=== PATIENT | male | born 1965 | race Caucasian/White ===

== ENCOUNTER 2017-09-16 17:38 | Inpatient (IN) | payer OTHER ==
[2017-09-16 18:33] VITALS: BMI 25.2
--- NOTE | 2017-09-16 20:40 | HP ---
CIWA Score - CIWA Score Nausea/Vomitin Muscle Tremors: 5 Anxiety: 2 Agitation: 1-Slight > Activity Paroxysmal Sweats: 2 Orientation: 0-Oriented Tacttile Disturbances: 2-Mild Itch/Numbness/Burn Auditory Disturbances: 0-None Visual Disturbances: 0-None Headache: 1-Very Mild CIWA-Ar Total Score: 15 Admission ROS BHS - HPI Chief Complaint: WITHDRAWAL SYMPTOMS Allergies/Adverse Reactions: Allergies Allergy/AdvReac Type Severity Reaction Status Date / Time Penicillins Allergy Mild Hives Verified 09/16/17 18:45 History of Present Illness: 52 Y.O. MAN WITH AN EXTENSIVE HISTORY OF ALCOHOL DEPENDENCE IS SEEKING DETOX. HE REPORTS HE COMPLETED DETOX 6 MONTHS AT [facility]. STATES HIS LONGEST PERIOD SOBER HAS BEEN 3 YEARS WHILES INCARCERATED. Exam Limitations: Intoxication - Ebola screening Have you traveled outside of the country in the last 21 days: No Have you been sick,other than usual withdrawal symptoms: No - Review of Systems Constitutional: Diaphoresis, Changes in sleep EENT: reports: No Symptoms Reported Respiratory: reports: No Symptoms reported Cardiac: reports: No Symptoms Reported GI: reports: No Symptoms Reported : reports: No Symptoms Reported Musculoskeletal: reports: Back Pain Integumentary: reports: Dryness, Other (B/L LE SKIN DISCOLORATION) Neuro: reports: Headache Endocrine: reports: No Symptoms Reported Hematology: reports: Anemia Psychiatric: reports: Anxious, Depressed Other Systems: Reviewed and Negative Patient History - Patient Medical History Hx Anemia: Yes Hx Asthma: No Hx Chronic Obstructive Pulmonary Disease (COPD): No Hx Cancer: No Hx Cardiac Disorders: No Hx Congestive Heart Failure: No Hx Hypertension: No Hx Hypercholesterolemia: No Hx Pacemaker: No HX Cerebrovascular Accident: No Hx Seizures: Yes (ETOH RELATED: 2016) Hx Dementia: No Hx Diabetes: No Hx Gastrointestinal Disorders: No Hx Liver Disease: No Hx Genitourinary Disorders: No Hx Sexually Transmitted Disorders: No Hx Renal Disease (ESRD): No Hx Thyroid Disease: No Hx Human Immunodeficiency Virus (HIV): No Hx Hepatitis C: No Hx Depression: Yes Hx Suicide Attempt: No Hx Bipolar Disorder: No Hx Schizophrenia: No Other Medical History: PVD, VARICOSE VEINS - Patient Surgical History Past Surgical History: Yes Hx Cholecystectomy: Yes (2011) Anesthesia Reaction: No - PPD History Previous Implant?: Yes Documented Results: Negative w/o proof PPD to be Administered?: Yes - Reproductive History Patient is a Female of Child Bearing Age (11 -55 yrs old): No - Smoking Cessation Smoking history: Never smoked - Substance & Tx. History Hx Alcohol Use: Yes Substance Use Type: Alcohol Hx Substance Use Treatment: Yes (DETOX AT [facility]: 02/2017) - Substances Abused Alcohol Route: Oral Frequency: Daily Amount used: Beer- (7) 24 oz Age of first use: 17 Date of Last Use: 09/16/17 Family Disease History - Family Disease History Family Disease History: [place]: Grandparent (PROSTATE [place] ) Admission Physical Exam [facility] - Vital Signs Vital Signs: Vital Signs - 24 hr 09/16/17 18:32 Temperature 97.7 F Pulse Rate 94 H Respiratory 18 Rate Blood Pressure 139/80 - Physical General Appearance: Yes: Disheveled, Alcohol on Breath, Intoxicated, Tremorous, Sweating, Anxious HEENTM: Yes: Normocephalic, Normal Voice Respiratory: Yes: Chest Non-Tender, Lungs Clear, Normal Breath Sounds, No Respiratory Distress, No Accessory Muscle Use Neck: Yes: No masses,lesions,Nodules Breast: Yes: Breast Exam Deferred Cardiology: Yes: Regular Rhythm, Regular Rate Abdominal: Yes: Normal Bowel Sounds, Non Tender Genitourinary: Yes: Other (NO COMPLAINTS REPORTED) Musculoskeletal: Yes: full range of Motion, Gait Steady, Pelvis Stable Extremities: Yes: Tremors, Pedal Edema, Swelling, Other (B/L SKIN DISCOLORATION) Neurological: Yes: Alert, Normal Mood/Affect, Normal Response Integumentary: Yes: Pitting Edema Lymphatic: Yes: Within Normal Limits - Diagnostic (1) Alcohol dependence with uncomplicated withdrawal Current Visit: Yes Status: Chronic (2) Varicose veins of both lower extremities Current Visit: Yes Status: Chronic (3) PVD (peripheral vascular disease) Current Visit: Yes Status: Chronic (4) Seizure Current Visit: No Status: Acute Comment: LAST ETOH RELATED SEIZURE: 2015 Cleared for Admission [facility] - Detox or Rehab [facility] Level of Care: Medically Managed Detox Regimen/Protocol: Librium [facility] Breath Alcohol Content Breath Alcohol Content: 0.303 Urine Drug Screen - Results Drug Screen Negative: No Urine Drug Screen Results: BZO-Benzodiazepines, TCA-Tricyclic Antidepress
[2017-09-16] MEDS ORDERED: MAG HYDROX/AL HYDROX/SIMETH 30 ML UNIT-DOSE CUP PO PRN (20:58)
[2017-09-16] MEDS ORDERED: guaiFENesin/D-METHORPHAN HB 10 ML UNIT-DOSE CUPS PO PRN (20:58)
[2017-09-16] MEDS ORDERED: MAGNESIUM CITRATE 300 ML BOTTLE PO PRN (20:58)
[2017-09-16] MEDS ORDERED: IBUPROFEN 400 MG TABLET (FP) PO PRN (20:58)
[2017-09-16] MEDS ORDERED: MENTHOL/PHENOL 1 EACH UD MM PRN (20:58)
[2017-09-16] MEDS ORDERED: P-EPHED 60MG/TRIPROLIDI 2.5MG TABLET PO PRN (20:58)
[2017-09-16] MEDS ORDERED: ACETAMINOPHEN 325 MG TABLET (FP) PO PRN (20:58)
[2017-09-16] MEDS ORDERED: LOPERAMIDE HCL 2 MG CAPSULE PO PRN (20:58)
[2017-09-16] MEDS ORDERED: chlordiazePOXIDE HCL 25 MG CAPSULE PO PRN (20:58)
[2017-09-16] MEDS ORDERED: MAGNESIUM HYDROX 2400MG/30ML ORAL SUSPENSION 30 ML CUP PO PRN (20:58)
[2017-09-16] MEDS ORDERED: chlordiazePOXIDE HCL 25 MG CAPSULE PO ONE (21:01)
[2017-09-16] MEDS: THIAMINE HCL 100 MG TABLET (FP) PO SCH (22:17)
[2017-09-16] MEDS: diphenhydrAMINE HCL 25 MG CAPSULE (FP) PO PRN (22:19)
[2017-09-16] MEDS: chlordiazePOXIDE HCL 25 MG CAPSULE PO SCH (22:22)
[2017-09-17 03:52] LABS: URINE APPEARANCE CLEAR; URINE BILIRUBIN NEGATIVE (NEGATIVE); URINE BLOOD 2+ (NEGATIVE); URINE COLOR LTYELLOW; URINE GLUCOSE (UA) NEGATIVE (NEGATIVE); URINE KETONE NEGATIVE (NEGATIVE); URINE LEUK ESTERASE NEGATIVE (NEGATIVE); URINE NITRITE NEGATIVE (NEGATIVE); URINE PROTEIN NEGATIVE (NEGATIVE); URINE UROBILINOGEN NEGATIVE mg/dL (0.2-1.0)
[2017-09-17] MEDS: chlordiazePOXIDE HCL 25 MG CAPSULE PO SCH ×4 (05:35→22:06)
[2017-09-17] MEDS: PRENATAL VITAMINS W/ FOLIC ACID TABLET (FP) PO SCH (10:07)
[2017-09-17 10:13] LABS: HEMATOCRIT 39.5 % (35.4-49); HEMOGLOBIN 12.6 GM/dL (11.7-16.9); MCH 28.4 pg (25.7-33.7); MCHC 31.9 g/dl (32.0-35.9); MEAN CELL VOLUME 88.8 fl (80-96); MEAN PLT VOLUME 8.6 fl (7.5-11.1); PLATELET COUNT 123 K/MM3 (134-434); RBC 4.44 M/mm3 (4.00-5.60); RDW 15.7 % (11.9-15.9); WHITE BLOOD COUNT 2.5 K/mm3 (4.0-10.0)
[2017-09-17 10:16] LABS: ALBUMIN 3.3 g/dl (3.4-5.0); ANION GAP 10 (8-16); BLOOD UREA NITROGEN 6 mg/dL (7-18); CALCIUM 7.9 mg/dL (8.5-10.1); CHLORIDE 103 mmol/L (98-107); CO2 26 mmol/L (21-32); GLUCOSE,RANDOM 107 mg/dL (74-106); POTASSIUM 3.5 mmol/L (3.5-5.1); SODIUM 139 mmol/L (136-145)
[2017-09-17 10:20] LABS: ALK PHOS 128 U/L (45-117); BILIRUBIN,TOTAL 0.7 mg/dL (0.2-1.0); CREATININE 0.7 mg/dL (0.7-1.3); SGOT/AST 157 U/L (15-37); SGPT/ALT 199 U/L (12-78); TOT PROT 6.9 g/dl (6.4-8.2)
[2017-09-17] MEDS ORDERED: cloNIDine HCL 0.1 MG TABLET PO ONE (11:00)
--- NOTE | 2017-09-17 11:26 | EKG ---
Test Reason : Blood Pressure : / mmHG Vent. Rate : 080 BPM Atrial Rate : 080 BPM P-R Int : 158 ms QRS Dur : 112 ms QT Int : 392 ms P-R-T Axes : 062 000 027 degrees QTc Int : 452 ms NORMAL SINUS RHYTHM INCOMPLETE RIGHT BUNDLE BRANCH BLOCK BORDERLINE ECG NO PREVIOUS ECGS AVAILABLE BASELINE ARTIFACT Confirmed by ASRAH BERGMAN, ALYSSA ([id number]) on 09/17/2017 11:25:46 AM Referred By: Confirmed By:ALYSSA SMITH MD
--- NOTE | 2017-09-17 11:50 | CONSULT ---
[facility] Psychiatric Consult - Data Date of interview: 09/17/17 Admission source: [facility] Identifying data: First admission to [facility] for this 52 y/o male seeking detox treatment on for alcohol dependence.Patient is single,a father of three,homeless,unemployed and supported on food stamps. Substance Abuse History: Discussed in this interview.Patient confirmed active use of alcohol.See current [facility] report for details : Smoking history: Never smoked. - Substance & Tx. History. Hx Alcohol Use: Yes. Substance Use Type: Alcohol. Hx Substance Use Treatment: Yes (DETOX AT [facility]: 02/2017). - Substances Abused. Alcohol. Route: Oral. Frequency: Daily. Amount used: Beer- (7) 24 oz. Age of first use: 17. Date of Last Use: 09/16/17 Medical History: History of anemia,peripheral vascular disease (varicose veins), withdrawal-related seizures and cholecystectomy (2011). Psychiatric History: Patient denies. Physical/Sexual Abuse/Trauma History: Patient denies. Additional Comment: Urine Drug Screen Results: BZO-Benzodiazepines, TCA- Tricyclic Antidepressant.Noted. Mental Status Exam - Mental Status Exam Alert and Oriented to: Time, Place, Person Cognitive Function: Good Patient Appearance: Well Groomed Mood: Hopeful, Euthymic Affect: Appropriate, Normal Range Patient Behavior: Fatigued, Appropriate, Cooperative Speech Pattern: Clear (croatian-sppeaking) Voice Loudness: Normal Thought Process: Intact, Goal Oriented Thought Disorder: Not Present Hallucinations: Denies Suicidal Ideation: Denies Homicidal Ideation: Denies Insight/Judgement: Poor Sleep: Poorly, Difficulty falling asleep Appetite: Good Muscle strength/Tone: Normal Gait/Station: Normal Psychiatric Findings - Problem List ([place] 1, 2,3) (1) Alcohol dependence with uncomplicated withdrawal Current Visit: Yes Status: Acute - Initial Treatment Plan Initial Treatment Plan: Psychoeducation.Support.Detoxification in progress.Observation.
[2017-09-17] MEDS: CYCLOBENZAPRINE HCL 10 MG TABLET (FP) PO PRN ×2 (12:09→22:08)
--- NOTE | 2017-09-17 16:10 | PN ---
S CIWA - CIWA Score Nausea/Vomitin Muscle Tremors: 3 Anxiety: 4-Mod. Anxious/Guarded Agitation: 2 Paroxysmal Sweats: 3 Orientation: 0-Oriented Tacttile Disturbances: 2-Mild Itch/Numbness/Burn Auditory Disturbances: 1-Very Mild Visual Disturbances: 0-None Headache: 0-None Present CIWA-Ar Total Score: 18 BHS Progress Note (SOAP) Subjective: Anxious, Tremors, Sweating, Nausea, Interrupted Sleep, Constipation. Objective: PT. A & O X 3, OBSERVED AMBULATING ON UNIT. NO ACUTE DISTRESS. 09/17/17 16:05 Vital Signs Temperature 97.9 F 09/17/17 13:31 Pulse Rate 116 H 09/17/17 13:31 Respiratory Rate 17 09/17/17 13:31 Blood Pressure 112/85 09/17/17 13:31 O2 Sat by Pulse Oximetry (%) Laboratory Tests 09/16/17 09/17/17 09/17/17 23:31 08:00 08:00 WBC 2.5 L RBC 4.44 Hgb 12.6 Hct 39.5 MCV 88.8 MCH 28.4 MCHC 31.9 L RDW 15.7 Plt Count 123 L MPV 8.6 Sodium 139 Potassium 3.5 Chloride 103 Carbon Dioxide 26 Anion Gap 10 BUN 6 L Creatinine 0.7 Creat Clearance w eGFR > 60 Random Glucose 107 H Calcium 7.9 L Total Bilirubin 0.7 AST 157 H ALT 199 H Alkaline Phosphatase 128 H Total Protein 6.9 Albumin 3.3 L Urine Color Ltyellow Urine Appearance Clear Urine pH 6.0 Ur Specific [place] 1.004 Urine Protein Negative Urine Glucose (UA) Negative Urine Ketones Negative Urine Blood 2+ H Urine Nitrite Negative Urine Bilirubin Negative Urine Urobilinogen Negative Ur Leukocyte Esterase Negative Urine WBC (Auto) 1 Urine RBC (Auto) 1 RPR Titer 09/17/17 08:00 WBC RBC Hgb Hct MCV MCH MCHC RDW Plt Count MPV Sodium Potassium Chloride Carbon Dioxide Anion Gap BUN Creatinine Creat Clearance w eGFR Random Glucose Calcium Total Bilirubin AST ALT Alkaline Phosphatase Total Protein Albumin Urine Color Urine Appearance Urine pH Ur Specific [place] Urine Protein Urine Glucose (UA) Urine Ketones Urine Blood Urine Nitrite Urine Bilirubin Urine Urobilinogen Ur Leukocyte Esterase Urine WBC (Auto) Urine RBC (Auto) RPR Titer Nonreactive LABS NOTED. Assessment: 09/17/17 16:05 WITHDRAWAL SYMPTOMS. Plan: CONTINUE DETOX. HFP, REPEAT CBC ON 09/19/2016 FOR ADMISSION ABNORMALITIES. REPEAT UA FOR ELEVATED UA BLOOD LEVEL. INCREASE DAILY PO FLUID INTAKE.
[2017-09-17] MEDS: THIAMINE HCL 100 MG TABLET (FP) PO SCH (22:05)
[2017-09-17] MEDS: diphenhydrAMINE HCL 25 MG CAPSULE (FP) PO PRN (22:07)
[2017-09-18] MEDS: chlordiazePOXIDE HCL 25 MG CAPSULE PO SCH ×3 (05:41→17:27)
[2017-09-18] MEDS: CYCLOBENZAPRINE HCL 10 MG TABLET (FP) PO PRN ×4 (05:42→22:09)
[2017-09-18] MEDS: PRENATAL VITAMINS W/ FOLIC ACID TABLET (FP) PO SCH (10:00)
[2017-09-18] MEDS ORDERED: hydrOXYzine HCL 25 MG TABLET (FP) PO ONE (10:20)
--- NOTE | 2017-09-18 11:39 | PN ---
[facility] CIWA - CIWA Score Nausea/Vomitin-Mild Nausea/No Vomiting Muscle Tremors: 4-Moderate,w/Arms Extend Anxiety: 4-Mod. Anxious/Guarded Agitation: 4-Moderately Restless Paroxysmal Sweats: 3 Orientation: 0-Oriented Tacttile Disturbances: 1-Very Mild Itch/Numbness Auditory Disturbances: 0-None Visual Disturbances: 0-None Headache: 0-None Present CIWA-Ar Total Score: 17 S Progress Note (SOAP) Subjective: Sweating, tremor, chills, back pain, anxiety Objective: 09/18/17 11:36 Last Vital Signs Temp Pulse Resp BP Pulse Ox 96.9 F L 89 19 118/89 09/18/17 09:02 09/18/17 09:02 09/18/17 09:02 09/18/17 09:02 Laboratory Tests 09/16/17 09/17/17 09/17/17 23:31 08:00 08:00 WBC 2.5 L RBC 4.44 Hgb 12.6 Hct 39.5 MCV 88.8 MCH 28.4 MCHC 31.9 L RDW 15.7 Plt Count 123 L MPV 8.6 Sodium 139 Potassium 3.5 Chloride 103 Carbon Dioxide 26 Anion Gap 10 BUN 6 L Creatinine 0.7 Creat Clearance w eGFR > 60 Random Glucose 107 H Calcium 7.9 L Total Bilirubin 0.7 AST 157 H ALT 199 H Alkaline Phosphatase 128 H Total Protein 6.9 Albumin 3.3 L Urine Color Ltyellow Urine Appearance Clear Urine pH 6.0 Ur Specific [place] 1.004 Urine Protein Negative Urine Glucose (UA) Negative Urine Ketones Negative Urine Blood 2+ H Urine Nitrite Negative Urine Bilirubin Negative Urine Urobilinogen Negative Ur Leukocyte Esterase Negative Urine WBC (Auto) 1 Urine RBC (Auto) 1 RPR Titer 09/17/17 08:00 WBC RBC Hgb Hct MCV MCH MCHC RDW Plt Count MPV Sodium Potassium Chloride Carbon Dioxide Anion Gap BUN Creatinine Creat Clearance w eGFR Random Glucose Calcium Total Bilirubin AST ALT Alkaline Phosphatase Total Protein Albumin Urine Color Urine Appearance Urine pH Ur Specific Cooks Urine Protein Urine Glucose (UA) Urine Ketones Urine Blood Urine Nitrite Urine Bilirubin Urine Urobilinogen Ur Leukocyte Esterase Urine WBC (Auto) Urine RBC (Auto) RPR Titer Nonreactive Labs noted: UA shows 2+ blood Assessment: 09/18/17 11:39 Withdrawal symptoms Noted with microscopic hematuria Plan: Continue detox Microscopic hematuria: encouraged to drink lots of water, repeat UA
[2017-09-18] MEDS: hydrOXYzine HCL 25 MG TABLET (FP) PO PRN (17:34)
[2017-09-18 18:42] LABS: URINE APPEARANCE CLOUDY; URINE BILIRUBIN NEGATIVE (NEGATIVE); URINE BLOOD NEGATIVE (NEGATIVE); URINE COLOR AMBER; URINE GLUCOSE (UA) 1+ (NEGATIVE); URINE KETONE NEGATIVE (NEGATIVE); URINE LEUK ESTERASE NEGATIVE (NEGATIVE); URINE NITRITE NEGATIVE (NEGATIVE); URINE PROTEIN NEGATIVE (NEGATIVE); URINE UROBILINOGEN 4.0 E.U/dl mg/dL (0.2-1.0)
[2017-09-18] MEDS: THIAMINE HCL 100 MG TABLET (FP) PO SCH (22:09)
[2017-09-18] MEDS: chlordiazePOXIDE 5 MG CAPSULE PO SCH (22:10)
[2017-09-18] MEDS: diphenhydrAMINE HCL 25 MG CAPSULE (FP) PO PRN (22:10)
[2017-09-19] MEDS: chlordiazePOXIDE 5 MG CAPSULE PO SCH ×3 (05:05→17:48)
[2017-09-19] MEDS: PRENATAL VITAMINS W/ FOLIC ACID TABLET (FP) PO SCH (10:03)
[2017-09-19] MEDS: CYCLOBENZAPRINE HCL 10 MG TABLET (FP) PO PRN (10:06)
[2017-09-19 12:00] LABS: EOS % 3.4 % (0-4.5); HEMATOCRIT 43.3 % (35.4-49); HEMOGLOBIN 13.8 GM/dL (11.7-16.9); LYMPH % 28.4 % (8-40); MCH 28.5 pg (25.7-33.7); MCHC 31.8 g/dl (32.0-35.9); MEAN CELL VOLUME 89.7 fl (80-96); MEAN PLT VOLUME 9.2 fl (7.5-11.1); MONO % 10.9 % (3.8-10.2); NEUT % 56.3 % (42.8-82.8); PLATELET COUNT 102 K/MM3 (134-434); RBC 4.83 M/mm3 (4.00-5.60); WHITE BLOOD COUNT 4.1 K/mm3 (4.0-10.0)
--- NOTE | 2017-09-19 12:07 | PN ---
BHS Progress Note (SOAP) Subjective: TREMORS,BACK PAIN. Objective: 09/19/17 12:15 Vital Signs Temperature 96.8 F L 09/19/17 09:18 Pulse Rate 94 H 09/19/17 09:18 Respiratory Rate 18 09/19/17 09:18 Blood Pressure 120/81 09/19/17 09:18 O2 Sat by Pulse Oximetry (%) Laboratory Last Values WBC 4.1 K/mm3 (4.0-10.0) D 09/19/17 07:50 RBC 4.83 M/mm3 (4.00-5.60) 09/19/17 07:50 Hgb 13.8 GM/dL (11.7-16.9) 09/19/17 07:50 Hct 43.3 % (35.4-49) 09/19/17 07:50 MCV 89.7 fl (80-96) 09/19/17 07:50 MCH 28.5 pg (25.7-33.7) 09/19/17 07:50 MCHC 31.8 g/dl (32.0-35.9) L 09/19/17 07:50 RDW 16.0 % (11.9-15.9) H 09/19/17 07:50 Plt Count 102 K/MM3 (134-434) L 09/19/17 07:50 MPV 9.2 fl (7.5-11.1) 09/19/17 07:50 Neutrophils % 56.3 % (42.8-82.8) 09/19/17 07:50 Lymphocytes % 28.4 % (8-40) 09/19/17 07:50 Monocytes % 10.9 % (3.8-10.2) H 09/19/17 07:50 Eosinophils % 3.4 % (0-4.5) 09/19/17 07:50 Basophils % 1.0 % (0-2.0) 09/19/17 07:50 Sodium 139 mmol/L (136-145) 09/17/17 08:00 Potassium 3.5 mmol/L (3.5-5.1) 09/17/17 08:00 Chloride 103 mmol/L (98-107) 09/17/17 08:00 Carbon Dioxide 26 mmol/L (21-32) 09/17/17 08:00 Anion Gap 10 (8-16) 09/17/17 08:00 BUN 6 mg/dL (7-18) L 09/17/17 08:00 Creatinine 0.7 mg/dL (0.7-1.3) 09/17/17 08:00 Creat Clearance w eGFR > 60 (>60) 09/17/17 08:00 Random Glucose 107 mg/dL (74-106) H 09/17/17 08:00 Calcium 7.9 mg/dL (8.5-10.1) L 09/17/17 08:00 Total Bilirubin 0.7 mg/dL (0.2-1.0) 09/17/17 08:00 AST 157 U/L (15-37) H 09/17/17 08:00 ALT 199 U/L (12-78) H 09/17/17 08:00 Alkaline Phosphatase 128 U/L (45-117) H 09/17/17 08:00 Total Protein 6.9 g/dl (6.4-8.2) 09/17/17 08:00 Albumin 3.3 g/dl (3.4-5.0) L 09/17/17 08:00 Urine Color Felicita 09/18/17 13:10 Urine Appearance Cloudy 09/18/17 13:10 Urine pH 8.0 (5.0-8.0) D 09/18/17 13:10 Ur Specific [place] 1.015 (1.001-1.035) 09/18/17 13:10 Urine Protein Negative (NEGATIVE) 09/18/17 13:10 Urine Glucose (UA) 1+ (NEGATIVE) H 09/18/17 13:10 Urine Ketones Negative (NEGATIVE) 09/18/17 13:10 Urine Blood Negative (NEGATIVE) 09/18/17 13:10 Urine Nitrite Negative (NEGATIVE) 09/18/17 13:10 Urine Bilirubin Negative (NEGATIVE) 09/18/17 13:10 Urine Urobilinogen 4.0 e.u/dl mg/dL (0.2-1.0) 09/18/17 13:10 Ur Leukocyte Esterase Negative (NEGATIVE) 09/18/17 13:10 Urine WBC (Auto) 1 /hpf (3-5) 09/16/17 23:31 Urine RBC (Auto) 1 /hpf (0-3) 09/16/17 23:31 RPR Titer Nonreactive (NONREACTIVE) 09/17/17 08:00 Assessment: 09/19/17 12:15 WITHDRAWAL SX Plan: CONTINUE DETOX INCREASE PO FLUIDS.
[2017-09-19] MEDS: hydrOXYzine HCL 25 MG TABLET (FP) PO PRN ×2 (12:08→22:09)
[2017-09-19 12:16] LABS: ALBUMIN 3.4 g/dl (3.4-5.0)
[2017-09-19] MEDS ORDERED: LIDOCAINE 5% TOPICAL PATCH TP ONE (12:19)
[2017-09-19 12:20] LABS: ALK PHOS 136 U/L (45-117); BILIRUBIN,DIRECT < 0.2 mg/dL (0.0-0.2); BILIRUBIN,TOTAL 0.5 mg/dL (0.2-1.0); SGOT/AST 101 U/L (15-37); SGPT/ALT 152 U/L (12-78); TOT PROT 6.9 g/dl (6.4-8.2)
[2017-09-19] MEDS: CYCLOBENZAPRINE HCL 10 MG TABLET (FP) PO SCH ×2 (13:59→22:09)
[2017-09-19] MEDS ORDERED: LIDOCAINE PATCH REMOVAL MC SCH ×2 (22:00)
[2017-09-19] MEDS: THIAMINE HCL 100 MG TABLET (FP) PO SCH (22:09)
[2017-09-19] MEDS: chlordiazePOXIDE HCL 10 MG CAPSULE PO SCH (22:10)
[2017-09-19] MEDS: diphenhydrAMINE HCL 25 MG CAPSULE (FP) PO PRN (22:21)
[2017-09-20] MEDS: chlordiazePOXIDE HCL 10 MG CAPSULE PO SCH ×2 (05:28→10:05)
[2017-09-20] MEDS: CYCLOBENZAPRINE HCL 10 MG TABLET (FP) PO SCH (05:29)
[2017-09-20 09:38] VITALS: BP 115/83; PULSE 98; TEMP 98.1
[2017-09-20] MEDS ORDERED: LIDOCAINE 5% TOPICAL PATCH TP SCH (10:00)
[2017-09-20] MEDS: PRENATAL VITAMINS W/ FOLIC ACID TABLET (FP) PO SCH (10:05)
--- NOTE | 2017-09-20 12:20 | DS ---
[facility] Detox Discharge Summary Admission Date: 09/16/17 Discharge Date: 09/20/17 - History Present History: Alcohol Dependence Additional Comments: PATIENT GOING HOME. PATIENT ADVISED TO CONSIDER LOCAL 12-STEP / AA OUTPATIENT SUPPORT GROUPS FOR AFTERCARE. PATIENT WAS DISCHARGED FROM DETOX UNIT IN STABLE MEDICAL CONDITION. Pertinent Past History: History of Anemia, History of Seizure (ETOH-Related), Depression, Peripheral Vascular Disease, Varicose Veins of Bilateral Lower Extremities. - Physical Exam Results Vital Signs: Vital Signs Temperature 98.1 F 09/20/17 09:38 Pulse Rate 98 H 09/20/17 09:38 Respiratory Rate 18 09/20/17 09:38 Blood Pressure 115/83 09/20/17 09:38 O2 Sat by Pulse Oximetry (%) Pertinent Admission Physical Exam Findings: WITHDRAWAL SYMPTOMS. Laboratory Tests 09/16/17 09/17/17 09/17/17 23:31 08:00 08:00 WBC 2.5 L RBC 4.44 Hgb 12.6 Hct 39.5 MCV 88.8 MCH 28.4 MCHC 31.9 L RDW 15.7 Plt Count 123 L MPV 8.6 Neutrophils % Lymphocytes % Monocytes % Eosinophils % Basophils % Sodium 139 Potassium 3.5 Chloride 103 Carbon Dioxide 26 Anion Gap 10 BUN 6 L Creatinine 0.7 Creat Clearance w eGFR > 60 Random Glucose 107 H Calcium 7.9 L Total Bilirubin 0.7 Direct Bilirubin AST 157 H ALT 199 H Alkaline Phosphatase 128 H Total Protein 6.9 Albumin 3.3 L Urine Color Ltyellow Urine Appearance Clear Urine pH 6.0 Ur Specific Fine 1.004 Urine Protein Negative Urine Glucose (UA) Negative Urine Ketones Negative Urine Blood 2+ H Urine Nitrite Negative Urine Bilirubin Negative Urine Urobilinogen Negative Ur Leukocyte Esterase Negative Urine WBC (Auto) 1 Urine RBC (Auto) 1 RPR Titer 09/17/17 09/18/17 09/19/17 08:00 13:10 07:50 WBC 4.1 D RBC 4.83 Hgb 13.8 Hct 43.3 MCV 89.7 MCH 28.5 MCHC 31.8 L RDW 16.0 H Plt Count 102 L MPV 9.2 Neutrophils % 56.3 Lymphocytes % 28.4 Monocytes % 10.9 H Eosinophils % 3.4 Basophils % 1.0 Sodium Potassium Chloride Carbon Dioxide Anion Gap BUN Creatinine Creat Clearance w eGFR Random Glucose Calcium Total Bilirubin Direct Bilirubin AST ALT Alkaline Phosphatase Total Protein Albumin Urine Color Felicita Urine Appearance Cloudy Urine pH 8.0 D Ur Specific Fine 1.015 Urine Protein Negative Urine Glucose (UA) 1+ H Urine Ketones Negative Urine Blood Negative Urine Nitrite Negative Urine Bilirubin Negative Urine Urobilinogen 4.0 e.u/dl Ur Leukocyte Esterase Negative Urine WBC (Auto) Urine RBC (Auto) RPR Titer Nonreactive 09/19/17 07:50 WBC RBC Hgb Hct MCV MCH MCHC RDW Plt Count MPV Neutrophils % Lymphocytes % Monocytes % Eosinophils % Basophils % Sodium Potassium Chloride Carbon Dioxide Anion Gap BUN Creatinine Creat Clearance w eGFR Random Glucose Calcium Total Bilirubin 0.5 D Direct Bilirubin < 0.2 AST 101 H D ALT 152 H D Alkaline Phosphatase 136 H Total Protein 6.9 Albumin 3.4 Urine Color Urine Appearance Urine pH Ur Specific Fine Urine Protein Urine Glucose (UA) Urine Ketones Urine Blood Urine Nitrite Urine Bilirubin Urine Urobilinogen Ur Leukocyte Esterase Urine WBC (Auto) Urine RBC (Auto) RPR Titer LABS NOTED. - Treatment Hospital Course: Detox Protocol Followed, Detoxed Safely, Responded well, Discharged Condition Good Patient has Accepted a Rehab Referral to: PT GOING HOME, ADVISED TO CONSIDER LOCAL 12-STEP/AA SUPPORT GROUPS. - Diagnosis (1) Alcohol dependence with uncomplicated withdrawal Status: Acute (2) PVD (peripheral vascular disease) Status: Chronic (3) Varicose veins of both lower extremities Status: Chronic (4) Seizure Status: Chronic - AMA Did Patient Leave Against Medical Advice: No
== END 2017-09-20 10:18 | disposition home or self-care (01) | DRG 775 ==
LOC: YASAS 17:38 → Y3N 19:56
PROVIDERS: ADMIT Internal Medicine; ATTEND Internal Medicine
PROC: HZ2ZZZZ Detoxification Services for Substance Abuse Treatment (ICD-10-PCS; principal; 2017-09-16)
DX: F10.230 Alcohol dependence with withdrawal, uncomplicated (principal); I73.9 Peripheral vascular disease, unspecified; I83.93 Asymptomatic varicose veins of bilateral lower extremities; R31.29 Other microscopic hematuria; Z86.69 Personal history of other diseases of the nervous system and sense organs; Z88.0 Allergy status to penicillin
CPT/HCPCS: 36415; 80053; 80076; 81003; 81015; 85025; 85027; 86593; 93005; 93010

== ENCOUNTER 2020-08-03 22:51 | Inpatient (IN) | payer OTHER ==
[2020-08-03 23:13] VITALS: BMI 23.0
[2020-08-03] MEDS ORDERED: ONDANSETRON *ODT* 4 MG TABLET SL PRN (23:17)
[2020-08-03] MEDS ORDERED: MAGNESIUM CITRATE 300 ML BOTTLE PO PRN (23:17)
[2020-08-03] MEDS ORDERED: BISMUTH SUBSALICYLATE 524 MG/30 ML UD PO PRN (23:17)
[2020-08-03] MEDS ORDERED: MENTHOL/PHENOL 1 EACH UD MM PRN (23:17)
[2020-08-03] MEDS ORDERED: ACETAMINOPHEN 325 MG TABLET (FP) PO PRN ×2 (23:17)
[2020-08-03] MEDS ORDERED: METHOCARBAMOL 500 MG TABLET PO PRN (23:17)
[2020-08-03] MEDS ORDERED: IBUPROFEN 400 MG TABLET (FP) PO PRN (23:17)
[2020-08-03] MEDS ORDERED: MAG HYDROX/AL HYDROX/SIMETH 30 ML UNIT-DOSE CUP PO PRN (23:17)
[2020-08-03] MEDS ORDERED: guaiFENesin 200 MG/10 ML 10 ML UNIT-DOSE CUPS PO PRN (23:17)
[2020-08-03] MEDS ORDERED: P-EPHED 60MG/TRIPROLIDI 2.5MG TABLET PO PRN (23:17)
[2020-08-03] MEDS ORDERED: DICYCLOMINE HCL 10 MG CAPSULE PO PRN (23:17)
[2020-08-03] MEDS ORDERED: MAGNESIUM HYDROX 2400MG/30ML ORAL SUSPENSION 30 ML CUP PO PRN (23:17)
[2020-08-04] MEDS: hydrOXYzine PAMOATE 25 MG CAPSULE (FP) PO PRN ×2 (00:39→06:41)
[2020-08-04] MEDS: LORazepam 2 MG TABLET PO SCH ×5 (00:39→22:12)
[2020-08-04] MEDS ORDERED: FLU VACCINE (FLULAVAL) PF 60 MCG/0.5 ML SYRINGE 2020-2021 IM ONE (09:00)
[2020-08-04 11:25] LABS: HEMATOCRIT 36.6 % (35.4-49); HEMOGLOBIN 12.2 GM/dL (11.7-16.9); MCH 30.2 pg (25.7-33.7); MCHC 33.5 g/dl (32.0-35.9); MEAN CELL VOLUME 90.1 fl (80-96); MEAN PLT VOLUME 8.5 fl (7.5-11.1); PLATELET COUNT 148 K/MM3 (134-434); RBC 4.06 M/mm3 (4.00-5.60); RDW 15.5 % (11.9-15.9)
[2020-08-04] MEDS: PRENATAL VITAMINS W/ FOLIC ACID TABLET (FP) PO SCH (11:28)
[2020-08-04 11:37] LABS: POTASSIUM 3.4 mmol/L (3.5-5.1)
[2020-08-04 11:45] LABS: ALBUMIN 3.1 g/dl (3.4-5.0); BLOOD UREA NITROGEN 8.4 mg/dL (7-18); CALCIUM 8.2 mg/dL (8.5-10.1)
[2020-08-04 11:47] LABS: BILIRUBIN,TOTAL 0.4 mg/dL (0.2-1); TOT PROT 6.7 g/dl (6.4-8.2)
[2020-08-04 11:48] LABS: CREATININE 0.7 mg/dL (0.55-1.3)
[2020-08-04] MEDS: LORazepam 1 MG TABLET PO PRN (14:22)
[2020-08-04 14:35] LABS: HIV INTERPRETATION NEGATIVE (NEGATIVE)
[2020-08-04] MEDS ORDERED: POTASSIUM CHLORIDE TABS 20 MEQ TABLET.ER (FP) PO ONE (14:49)
[2020-08-04] MEDS: THIAMINE HCL 100 MG TABLET (FP) PO SCH (22:12)
[2020-08-04] MEDS: POTASSIUM CHLORIDE TABS 20 MEQ TABLET.ER (FP) PO SCH (22:12)
[2020-08-04] MEDS: MELATONIN 5 MG TABLETS PO SCH (22:15)
[2020-08-05] MEDS: LORazepam 1 MG TABLET PO SCH ×4 (05:32→22:11)
[2020-08-05 09:03] LABS: HEMATOCRIT 38.2 % (35.4-49); HEMOGLOBIN 12.6 GM/dL (11.7-16.9); MCH 29.5 pg (25.7-33.7); MCHC 32.9 g/dl (32.0-35.9); MEAN CELL VOLUME 89.7 fl (80-96); MEAN PLT VOLUME 9.1 fl (7.5-11.1); PLATELET COUNT 119 K/MM3 (134-434); RBC 4.26 M/mm3 (4.00-5.60); RDW 14.8 % (11.9-15.9); WHITE BLOOD COUNT 4.3 K/mm3 (4.0-10.0)
[2020-08-05 09:05] LABS: POTASSIUM 3.7 mmol/L (3.5-5.1)
[2020-08-05 09:08] LABS: INR 1.02 (0.83-1.09); PROTHROMBIN TIME (PATIENT) 12.5 SEC (9.7-13.0)
[2020-08-05 09:12] LABS: ALBUMIN 3.1 g/dl (3.4-5.0); BLOOD UREA NITROGEN 6.5 mg/dL (7-18); CALCIUM 9.2 mg/dL (8.5-10.1)
[2020-08-05 09:15] LABS: CREATININE 0.7 mg/dL (0.55-1.3)
[2020-08-05 09:17] LABS: BILIRUBIN,TOTAL 0.9 mg/dL (0.2-1); TOT PROT 6.8 g/dl (6.4-8.2)
[2020-08-05] MEDS: PRENATAL VITAMINS W/ FOLIC ACID TABLET (FP) PO SCH (10:31)
[2020-08-05] MEDS: POTASSIUM CHLORIDE TABS 20 MEQ TABLET.ER (FP) PO SCH ×2 (10:31→21:39)
[2020-08-05] MEDS: LORazepam 1 MG TABLET PO PRN (13:34)
[2020-08-05] MEDS: hydrOXYzine PAMOATE 25 MG CAPSULE (FP) PO PRN (21:39)
[2020-08-05] MEDS: THIAMINE HCL 100 MG TABLET (FP) PO SCH (21:39)
[2020-08-05] MEDS: MELATONIN 5 MG TABLETS PO SCH (21:40)
[2020-08-06] MEDS ORDERED: LORazepam 0.5 MG TABLET PO PRN
[2020-08-06] MEDS ORDERED: LORazepam 0.5 MG TABLET PO SCH (05:00)
[2020-08-06 09:16] VITALS: BP 148/89; PULSE 102; TEMP 97.7
[2020-08-06] MEDS ORDERED: FLU VACCINE (FLULAVAL) PF 60 MCG/0.5 ML SYRINGE 2020-2021 IM ONE (12:00)
[2020-08-07] MEDS ORDERED: LORazepam 0.5 MG TABLET PO ONE (05:00)
== END 2020-08-06 09:28 | disposition home or self-care (01) | DRG 775 ==
LOC: YASAS 22:51 → Y6N 23:16
PROVIDERS: ADMIT Allergy & Immunology; ATTEND Allergy & Immunology
PROC: HZ2ZZZZ Detoxification Services for Substance Abuse Treatment (ICD-10-PCS; principal; 2020-08-03)
DX: F10.230 Alcohol dependence with withdrawal, uncomplicated (principal); F10.282 Alcohol dependence with alcohol-induced sleep disorder; F32.9 Major depressive disorder, single episode, unspecified; E87.6 Hypokalemia; D72.819 Decreased white blood cell count, unspecified; G40.509 Epileptic seizures related to external causes, not intractable, without status epilepticus; I83.93 Asymptomatic varicose veins of bilateral lower extremities; I73.9 Peripheral vascular disease, unspecified; Z86.2 Personal history of diseases of the blood and blood-forming organs and certain disorders involving the immune mechanism; R74.01 Elevation of levels of liver transaminase levels; R74.8 Abnormal levels of other serum enzymes; R26.89 Other abnormalities of gait and mobility; Z91.81 History of falling; Z91.14 Patient's other noncompliance with medication regimen; Z56.0 Unemployment, unspecified; Z59.0 Homelessness; Z88.0 Allergy status to penicillin; Z90.49 Acquired absence of other specified parts of digestive tract
CPT/HCPCS: 36415; 80053; 85027; 85610; 86780; 87389; 93005; 93010; C9803; U0003